=== PATIENT | female | born 1990 | race Caucasian/White ===

== ENCOUNTER 2019-04-30 09:06 | Emergency (ER) | payer OTHER, BC ==
[2019-04-30] MEDS ORDERED: HYDROmorphone 1 MG/ML Syringe IVPUSH ONE (10:20)
[2019-04-30] MEDS ORDERED: Iopamidol 612 MG/ML 50 ML SDV IVPUSH ONE (10:23)
[2019-04-30] MEDS ORDERED: Sodium Chloride 0.9% 10 ML Syringe FLUSH PRN (10:23)
[2019-04-30] MEDS ORDERED: Iopamidol 612 MG/ML 100 ML Bottle IVPUSH ONE (10:23)
[2019-04-30] MEDS ORDERED: Lactated Ringers 1,000 ML IV SCH (10:30)
[2019-04-30] MEDS: Sodium Chloride 0.9% 10 ML Syringe FLUSH PRN ×2 (10:41→10:54)
[2019-04-30] MEDS ORDERED: Ondansetron 4 MG/2 ML SDV IVPUSH ONE (10:50)
--- NOTE | 2019-04-30 12:18 | CT ---
CT chest Technique: Multiple axial sections were obtained from above the lung apices inferiorly through the lung bases. Intravenous contrast was utilized. Comparison: No prior chest imaging is available. Findings: Mediastinum and hilar regions are unremarkable. No pericardial thickening is seen. No axillary adenopathy is identified. Lungs are clear with no acute parenchymal change. No pleural effusions are seen. No pneumothorax is identified. Bone window settings were reviewed. No acute osseous finding is appreciated. Impression: 1. Nothing acute seen on CT study of the chest. Diagnostic code #1 CT abdomen and pelvis Technique: Multiple axial sections were obtained from above the dome of the diaphragm inferiorly through the pubic symphysis. Intravenous contrast was utilized. No oral contrast has been given. Delayed images were obtained through the bladder. Comparison: No prior abdominal imaging is available. Findings: Liver contains no focal abnormality. Spleen appears within normal limits. Adrenal glands show no nodule. Pancreas appears within normal limits. Gallbladder contains no calcified gallstones. Kidneys show symmetric contrast enhancement without abnormality being seen. Aorta shows no aneurysm. No retroperitoneal adenopathy or mesenteric abnormalities are seen. No pelvic mass or adenopathy is seen. No free fluid or inflammatory change is appreciated. Appendix is felt to be visualized and is normal in size. Bone window settings were reviewed which show no acute osseous finding. Delayed images show contrast within the distal ureters and within the bladder. Impression: 1. Nothing acute is appreciated on CT study of the abdomen and pelvis. Diagnostic code #1 This report was dictated in [place] Standard Time
--- NOTE | 2019-04-30 12:18 | CT ---
CT cervical spine Technique: Multiple axial sections were obtained from above C1 inferiorly to the mid T2 level. Reconstructed sagittal and coronal images were reviewed. Findings: Vertebral body heights and disc spaces are maintained. Vertebral bodies and posterior arches are intact. No fracture is appreciated. No bony central or bony neural foraminal stenosis is seen. Minimal degenerative change is noted within the lower apophyseal joints. Impression: 1. Minimal degenerative change as noted above. 2. No acute fracture or abnormal subluxation is seen. Diagnostic code #2 This report was dictated in [place] Standard Time
--- NOTE | 2019-04-30 12:18 | CT ---
Head CT Technique: Multiple axial sections through the brain were obtained. Intravenous contrast was not utilized. Comparison: No prior intracranial imaging is available. Findings: Ventricles along with basal cisterns and sulci over the convexities are within normal limits for the patient's age. No abnormal parenchymal densities are seen. No evidence of intracranial hemorrhage. No midline shift or mass-effect is seen. Bone window settings were reviewed. No acute calvarial abnormality is seen. Visualized paranasal sinuses and mastoid sinuses show nothing acute. Impression: 1. Nothing acute is appreciated on noncontrast head CT exam. Diagnostic code #1 This report was dictated in [place] Standard Time
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
== END 2019-04-30 13:30 | disposition home or self-care (01) ==
LOC: JD.ED 09:06
DX: S16.1XXA Strain of muscle, fascia and tendon at neck level, initial encounter (principal); S39.012A Strain of muscle, fascia and tendon of lower back, initial encounter; S30.1XXA Contusion of abdominal wall, initial encounter; R51 Headache; F41.9 Anxiety disorder, unspecified; Z79.899 Other long term (current) drug therapy; Z88.1 Allergy status to other antibiotic agents; V49.40XA Driver injured in collision with unspecified motor vehicles in traffic accident, initial encounter; Y92.410 Unspecified street and highway as the place of occurrence of the external cause
CPT/HCPCS: 36415; 70450; 71260; 72125; 74177; 80053; 81001; 83690; 84703; 85025; 96361; 96374; 96375; 99285; J1170; J2405; J7120; Q9967; 99284

== ENCOUNTER 2019-05-02 19:08 | Emergency (ER) | payer OTHER, BC ==
[2019-05-02] MEDS ORDERED: Ketorolac 60 MG/2 ML SDV IM ONE (19:53)
[2019-05-02] MEDS ORDERED: HYDROmorphone 1 MG/ML Syringe IM ONE (19:53)
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
== END 2019-05-02 20:35 | disposition home or self-care (01) ==
LOC: JD.ED 19:08
DX: S16.1XXD Strain of muscle, fascia and tendon at neck level, subsequent encounter (principal); S39.012D Strain of muscle, fascia and tendon of lower back, subsequent encounter; R51 Headache; F41.9 Anxiety disorder, unspecified; Z88.1 Allergy status to other antibiotic agents; Z79.899 Other long term (current) drug therapy; V89.2XXD Person injured in unspecified motor-vehicle accident, traffic, subsequent encounter
CPT/HCPCS: 96372; 99283; J1170; J1885

== ENCOUNTER 2019-05-11 19:58 | Emergency (ER) | payer BC, OTHER ==
[2019-05-11] MEDS ORDERED: Sodium Chloride 0.9% 10 ML Syringe FLUSH PRN (22:07)
[2019-05-11] MEDS ORDERED: Ketorolac 30 MG/ML SDV IVPUSH ONE (22:07)
[2019-05-11] MEDS ORDERED: diphenhydrAMINE 50 MG/ML SDV IVPUSH ONE (22:07)
[2019-05-11] MEDS ORDERED: Metoclopramide 10 MG/2 ML SDV IVPUSH ONE (22:07)
[2019-05-11] MEDS ORDERED: Sodium Chloride 0.9% 1,000 ML IV SCH (22:15)
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
[2019-05-11] MEDS ORDERED: Ketorolac 30 MG/ML SDV IM STA (22:47)
[2019-05-11] MEDS ORDERED: diphenhydrAMINE 50 MG/ML SDV IM STA (22:47)
[2019-05-11] MEDS ORDERED: Metoclopramide 10 MG/2 ML SDV IM STA (22:48)
== END 2019-05-11 23:50 | disposition home or self-care (01) ==
LOC: JD.ED 19:58
DX: R55 Syncope and collapse (principal); G44.209 Tension-type headache, unspecified, not intractable; Z88.8 Allergy status to other drugs, medicaments and biological substances; Z79.899 Other long term (current) drug therapy
CPT/HCPCS: 96372; 99283; J1200; J1885; J2765

== ENCOUNTER 2019-05-24 14:44 | Emergency (ER) | payer OTHER, BC ==
[2019-05-24] MEDS ORDERED: HYDROmorphone 1 MG/ML Syringe IM ONE (15:19)
[2019-05-24] MEDS ORDERED: Ketorolac 60 MG/2 ML SDV IM ONE (15:20)
[2019-05-24] MEDS ORDERED: Cyclobenzaprine 10 MG Tab PO ONE (15:20)
[2019-05-24] MEDS ORDERED: Ondansetron 4 MG Tab.DIS PO ONE (15:51)
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
== END 2019-05-24 16:06 | disposition home or self-care (01) ==
LOC: JD.ED 14:44
DX: M54.5 Low back pain (principal); F41.9 Anxiety disorder, unspecified; Z79.899 Other long term (current) drug therapy; Z88.8 Allergy status to other drugs, medicaments and biological substances
CPT/HCPCS: 96372; 99283; A9270; J1170; J1885

== ENCOUNTER 2019-08-23 19:57 | Emergency (ER) | payer BC, OTHER ==
--- NOTE | 2019-08-23 20:58 | EDM.PDOC ---
ED HPI GENERAL MEDICAL PROBLEM - General Chief Complaint: Lower Extremity Injury/Pain Stated Complaint: dropped cabinet on foot Time Seen by Provider: 08/23/19 20:06 Source of Information: Reports: Patient History Limitations: Reports: No Limitations - History of Present Illness INITIAL COMMENTS - FREE TEXT/NARRATIVE: Patient is a 29-year-old female who presents with pain to the distal portion of her left foot and toes. States she was carrying a cabinet and she dropped on her foot. She has been able to bear weight on the heel, however she puts weight on the anterior portion of her foot it is quite painful. She denies any history of previous fractures to the foot, however states she broke "1 of her toes as a young child ". Left Foot Pain Score (Numeric/FACES): 7 - Related Data Allergies Allergy/AdvReac Type Severity Reaction Status Date / Time cefdinir [From Omnicef] Allergy Abdominal Verified 08/23/19 20:11 Pain Home Meds: Home Meds Albuterol Sulfate [Albuterol Sulfate Hfa] 2 dispenser INH ASDIRECTED PRN [History] Cetirizine [ZyrTEC] 10 mg PO ASDIRECTED PRN 04/30/19 [History] Cyclobenzaprine [Flexeril] 10 mg PO TID PRN #20 tab 04/30/19 [Rx] Escitalopram [Lexapro] 30 mg PO DAILY 04/30/19 [History] Oxybutynin Chloride [Oxybutynin Chloride ER] 10 mg PO DAILY 04/30/19 [History] Sennosides/Docusate Sodium [Senna-Docusate Sodium Tablet] 1 tab PO ASDIRECTED [History] traZODone HCl [Trazodone HCl] 50 mg PO BEDTIME 04/30/19 [History] Hydrocodone/Acetaminophen [Hydrocodone-Acetamin 5-325 mg] 1 - 2 each PO Q6HR PRN #20 tablet 05/02/19 [Rx] Orphenadrine [Norflex] 100 mg PO BID PRN #20 tab 05/11/19 [Rx] Cyclobenzaprine [Flexeril] 10 mg PO TID PRN #20 tab 05/24/19 [Rx] Hydrocodone/Acetaminophen [Hydrocodone-Acetamin 5-325 mg] 1 - 2 each PO Q6HR PRN #20 tablet 05/24/19 [Rx] 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, Psychiatric History: Reports: Anxiety - Past Surgical History Female Surgical History: Reports: Hysterectomy, Other (See Below) Other Female Surgeries/Procedures: breast lumpectomy Musculoskeletal Surgical History: Reports: Arthroscopic Knee Oncologic Surgical History: Reports: Lumpectomy Social & Family History - Family History Family Medical History: Noncontributory - Tobacco Use Smoking Status *Q: Never Smoker - Caffeine Use Caffeine Use: Reports: Coffee - Recreational Drug Use Recreational Drug Use: No Review of Systems - Review of Systems Review Of Systems: Comprehensive ROS is negative, except as noted in HPI. ED EXAM, GENERAL - Physical Exam Exam: See Below Exam Limited By: No Limitations General Appearance: Alert, WD/WN, No Apparent Distress Respiratory/Chest: No Respiratory Distress, Lungs Clear, Normal Breath Sounds, No Accessory Muscle Use, Chest Non-Tender Cardiovascular: Normal Peripheral Pulses, Regular Rate, Rhythm, No Edema, No Gallop, No JVD, No Murmur, No Rub Extremities: Other (Mild edema and ecchymosis to the distal portion of the right foot. No obvious deformity or localized swelling. CMS is intact distal to the injury.) Neurological: Alert, Oriented, CN II-XII Intact, Normal Cognition, Normal Gait, Normal Reflexes, No Motor/Sensory Deficits Psychiatric: Normal Affect, Normal Mood Skin Exam: Warm, Dry, Intact, Normal Color, No Rash Course - Vital Signs Last Recorded V/S: Last Vital Signs Temp 98.3 F 08/23/19 20:08 Pulse 80 08/23/19 20:08 Resp 16 08/23/19 20:08 BP 135/79 08/23/19 20:08 Pulse Ox 100 08/23/19 20:08 - Orders/Labs/Meds Orders: Active Orders 24 hr Category Date Time Status Foot Comp Min 3V Lt [CR] Stat Exams 08/23/19 20:20 Taken - Re-Assessments/Exams Free Text/Narrative Re-Assessment/Exam: 08/23/19 20:56 X-rays of the foot were negative for any acute fractures. Discussed crutches versus walking boot. Patient requests a walking boot as she is in the process of moving. Discharge instructions as documented. Departure - Departure Time of Disposition: 20:57 Disposition: Home, Self-Care 01 Condition: Good Clinical Impression: Contusion of foot, left Qualifiers: Encounter type: initial encounter Qualified Code(s): S90.32XA - Contusion of left foot, initial encounter - Discharge Information Instructions: Contusion, [id number] Referrals: Bridgette Camarena, [employer] [Primary Care Provider] - Additional Instructions: You were seen in the emergency department today for left foot pain and swelling after dropping a cabinet on it. X-rays were done and were negative for any acute fractures. You have been provided a walking boot for comfort. Wear this as needed over the next few days until the pain and swelling improves. You may ice and elevate the extremity when at rest. Use [id number] Tylenol or ibuprofen as needed for pain. If you are still having significant pain to the extremity after about a week, I would recommend that you follow-up in the clinic for a recheck. Return to the ER as needed. Sepsis Event Note - Evaluation Sepsis Screening Result: No Definite Risk - Focused Exam Vital Signs: Vital Signs Temp Pulse Resp BP Pulse Ox 08/23/19 20:08 98.3 F 80 16 135/79 100 Date Exam was Performed: 08/23/19 Time Exam was Performed: 20:55 - My Orders Last 24 Hours: My Active Orders 08/23/19 20:20 Foot Comp Min 3V Lt [CR] Stat - Assessment/Plan Last 24 Hours: My Active Orders 08/23/19 20:20 Foot Comp Min 3V Lt [CR] Stat
--- NOTE | 2019-08-24 06:37 | CR ---
Left foot: 4 views of the left foot were obtained. Comparison: No prior foot exam is available. No fracture, dislocation or other bony abnormality is identified. Soft tissue swelling is noted dorsally. Impression: 1. Soft tissue swelling within the dorsal foot. 2. No acute bony abnormality is identified. Diagnostic code #2 This report was dictated in MDT
== END 2019-08-23 21:09 | disposition home or self-care (01) ==
LOC: JD.ED 19:57
DX: S90.32XA Contusion of left foot, initial encounter (principal); S90.31XA Contusion of right foot, initial encounter; F41.9 Anxiety disorder, unspecified; Z79.899 Other long term (current) drug therapy; Z88.8 Allergy status to other drugs, medicaments and biological substances; W20.8XXA Other cause of strike by thrown, projected or falling object, initial encounter
CPT/HCPCS: 73630-26-LT; 73630-LT; 99282; 99283-25

== ENCOUNTER 2019-09-19 06:55 | Day surgery (SDC) | payer BC, OTHER ==
[~2019-09-19 06:55] MED LIST: Lactated Ringers 1,000 ML IV SCH; Lidocaine 1%/Sod Bicarbonate in NS 8.4% 1 ML Syringe IDERM PRN; Sodium Chloride 0.9% 10 ML Syringe FLUSH PRN
[2019-09-19] MEDS ORDERED: Bupivacaine 0.5% 30 ML SDV ONE (07:15)
[2019-09-19] MEDS ORDERED: Propofol 200 MG/20 ML SDV ONE (07:18)
[2019-09-19] MEDS ORDERED: fentaNYL 250 MCG/5 ML SDV ONE (07:19)
[2019-09-19] MEDS ORDERED: Midazolam 1 MG/ML 2 ML SDV ONE (07:19)
[2019-09-19] MEDS ORDERED: Ondansetron 4 MG/2 ML SDV ONE (07:19)
[2019-09-19] MEDS ORDERED: Lidocaine 1% 4 ML ONE (07:19)
[2019-09-19] MEDS ORDERED: Succinylcholine/Sod PF 100 MG/5 ML SYRINGE IV ONE (07:25)
--- NOTE | 2019-09-19 07:34 | PCM.PREANE ---
Preanesthetic Assessment - Anesthesia/Transfusion/Family Hx Anesthesia History: Prior Anesthesia Without Reaction Transfusion History: No Prior Transfusion(s) Intubation History: Unknown - Review of Systems General: No Symptoms Pulmonary: No Symptoms Cardiovascular: No Symptoms Gastrointestinal: No Symptoms Neurological: No Symptoms Other: Reports: Depression, Anxiety - Physical Assessment NPO Status Date: 09/18/19 NPO Status Time: 22:00 Vital Signs: Last Vital Signs Temp 97.8 F 09/19/19 07:05 Pulse 76 09/19/19 07:05 Resp 16 09/19/19 07:05 BP 149/99 H 09/19/19 07:05 Pulse Ox 98 09/19/19 07:05 Height: 1.6 m Weight: 108.409 kg ASA Class: 2 Mental Status: Alert & Oriented x3 Airway Class: Mallampati = 1 Dentition: Reports: Normal Dentition Thyro-Mental Finger Breadths: 3 Mouth Opening Finger Breadths: 3 ROM/Head Extension: Full Lungs: Clear to Auscultation, Normal Respiratory Effort Cardiovascular: Regular Rate, Regular Rhythm - Lab Values: Laboratory Last Values COVID-19 PCR Not detected (NOT DETECT) 09/16/19 15:00 - Allergies Allergies/Adverse Reactions: Allergies Allergy/AdvReac Type Severity Reaction Status Date / Time cefdinir [From Omnicef] AdvReac Abdominal Verified 09/18/19 10:44 Pain - Acknowledgements Anesthesia Type Planned: General Anesthesia Pt an Appropriate Candidate for the Planned Anesthesia: Yes Alternatives and Risks of Anesthesia Discussed w Pt/Guardian: Yes Pt/Guardian Understands and Agrees with Anesthesia Plan: Yes PreAnesthesia Questionnaire Cardiovascular History: Reports: None Respiratory History: Reports: Other (See Below) Other Respiratory History: reactive airway disease- allergy induced Gastrointestinal History: Reports: None Genitourinary History: Reports: Other (See Below) Other Genitourinary History: overactive bladder, frequency 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 History: Reports: Polycystic Ovaries, Musculoskeletal History: Reports: Back Pain, Chronic Neurological History: Reports: Other (See Below) Other Neuro History: cervical pain, migraine, left extremily numbness tingling Psychiatric History: Reports: Anxiety, Depression Endocrine/Metabolic History: Reports: Hypothyroidism Hematologic History: Reports: None Immunologic History: Reports: None Oncologic (Cancer) History: Reports: None Dermatologic History: Reports: Other (See Below) Other Dermatologic History: lumpectomy - Past Surgical History Head Surgeries/Procedures: Reports: None HEENT Surgical History: Reports: Oral Surgery Cardiovascular Surgical History: Reports: None Respiratory Surgical History: Reports: None GI Surgical History: Reports: None Female Surgical History: Reports: Hysterectomy, Other (See Below) Other Female Surgeries/Procedures: breast lumpectomy Endocrine Surgical History: Reports: None Neurological Surgical History: Reports: None Musculoskeletal Surgical History: Reports: Arthroscopic Knee Oncologic Surgical History: Reports: Lumpectomy Dermatological Surgical History: Reports: None - SUBSTANCE USE Smoking Status *Q: Never Smoker Recreational Drug Use History: No - HOME MEDS Home Medications: Home Meds Albuterol Sulfate [Albuterol Sulfate Hfa] 1 puff INH Q4H PRN 04/30/19 [History] Oxybutynin Chloride [Oxybutynin Chloride ER] 10 mg PO DAILY 04/30/19 [History] Escitalopram Oxalate 10 mg PO DAILY 09/17/19 [History] Escitalopram Oxalate 20 mg PO DAILY 09/17/19 [History] Loratadine [Claritin] 10 mg PO DAILY 09/17/19 [History] busPIRone HCl [Buspirone HCl] 7.5 mg PO BID 09/17/19 [History] hydrOXYzine HCL [hydrOXYzine] 25 - 50 mg PO BEDTIME 09/17/19 [History] - CURRENT (IN HOUSE) MEDS Current Meds: Current Medications Lactated Ringer's (Ringers, Lactated) 1,000 mls @ 125 mls/hr IV ASDIRECTED IVAN Stop: 09/19/19 23:00 Last Admin: 09/19/19 07:10 Dose: 125 mls/hr Documented by: Lidocaine/Sodium Bicarbonate (Buffered Lidocaine 1% In Ns 8.4%) 0.25 ml IDERM ONETIME PRN PRN Reason: Prior to IV Start Stop: 09/19/19 23:00 Last Admin: 09/19/19 07:10 Dose: 0.25 ml Documented by: Sodium Chloride (Saline Flush) 10 ml FLUSH ASDIRECTED PRN PRN Reason: Keep Vein Open Stop: 09/19/19 18:00 Discontinued Medications Bupivacaine HCl (Marcaine 0.5%) Confirm Administered Dose 30 ml .ROUTE .STK-MED ONE Stop: 09/19/19 07:16 Fentanyl (Sublimaze) Confirm Administered Dose 250 mcg .ROUTE .STK-MED ONE Stop: 09/19/19 07:20 Lidocaine HCl (Xylocaine-Mpf 1%) Confirm Administered Dose 4 mls @ as directed .ROUTE .STK-MED ONE Stop: 09/19/19 07:20 Midazolam HCl (Versed 1 Mg/Ml) Confirm Administered Dose 4 mg .ROUTE .STK-MED ONE Stop: 09/19/19 07:20 Ondansetron HCl (Zofran) Confirm Administered Dose 8 mg .ROUTE .STK-MED ONE Stop: 09/19/19 07:20 Propofol (Diprivan 20 Ml) Confirm Administered Dose 200 mg .ROUTE .STK-MED ONE Stop: 09/19/19 07:19
[2019-09-19] MEDS ORDERED: fentaNYL 100 MCG/2 ML SDV IVPUSH PRN (07:48)
[2019-09-19] MEDS ORDERED: HYDROmorphone 0.5 MG/0.5 ML Syringe IVPUSH PRN (07:48)
[2019-09-19] MEDS ORDERED: Dexamethasone 4 MG/ML 5 ML MDV ONE (08:03)
[2019-09-19] MEDS ORDERED: Ketorolac 30 MG/ML SDV ONE (08:38)
--- NOTE | 2019-09-19 09:25 | PCM.POSTAN ---
POST ANESTHESIA ASSESSMENT - MENTAL STATUS Mental Status: Somnolent - VITAL SIGNS Vital Signs: Last Vital Signs Temp 97.5 F 09/19/19 09:14 Pulse 76 09/19/19 07:05 Resp 25 H 09/19/19 09:14 BP 128/64 09/19/19 09:14 Pulse Ox 94 L 09/19/19 09:14 - RESPIRATORY Respiratory Status: Respiratory Rate WNL, Airway Patent, O2 Saturation Stable, Supplemental Oxygen - CARDIOVASCULAR CV Status: Pulse Rate WNL, Blood Pressure Stable - GASTROINTESTINAL GI Status: No Symptoms - PAIN Pain Score: 0 - POST OP HYDRATION Hydration Status: Adequate & Stable
--- NOTE | 2019-09-19 09:33 | PCM.OPNOTE ---
- General Post-Op/Procedure Note Date of Surgery/Procedure: 09/19/19 Operative Procedure(s): Laparoscopy with bilateral salpingectomy, right ovarian cystectomy and lysis of adhesions Findings: Uterus was surgically absent consistent with previous transvaginal hysterectomy. Bilateral distal fallopian tubes present and normal in appearance. Left ovary grossly normal in appearance. Right ovary with an large cyst measuring approximately 3 cm in greatest diameter. This was removed during surgery. Extensive adhesions in the low pelvis of the omentum and intestines to the anterior abdominal wall in the pelvis. Adhesions from the ascending colon on the right side to the anterior abdominal wall and these were taken down. Grossly normal-appearing visualized portions of the intestines. Grossly normal- appearing liver edge and visualized portion of the gallbladder. Normal- appearing appendix. Pre Op Diagnosis: Female pelvic pain, PCOS and right ovarian cyst Post-Op Diagnosis: Same Anesthesia Technique: General ET Tube Primary Surgeon: Marco A Thomson Anesthesia Provider: Regulo Ordaz Back Tacker: Ryan Up Back Tacker: Pamela Pitts ([place] student) Reason Back Tacker Was Necessary: Patient safety and reduction of morbidity and mortality Role of Back Tacker: Use of laparoscopic instruments to complete the surgery Pathology: Bilateral fallopian tubes and right ovarian cyst wall with small portion of ovary present Fluid Replacement, Intraop: 1,000 Output, Urine Amount: 200 EBL in mLs: 10 Complications: None Condition: Good Free Text/Narrative:: The patient was seen in the preoperative holding area and risks, benefits, indications, and alternatives of the procedure were reviewed with the patient and she desired to proceed with a diagnostic laparoscopy, bilateral salpingectomy, possible lysis of adhesions, possible biopsies and possible ovarian cystectomy. Consents were reviewed. The patient was taken back to the OR and given general anesthesia with an endotracheal tube which was placed without difficulty. She was placed in dorsal supine position. A Wallace catheter was placed without difficulty prior to procedure. She was prepped and draped in normal sterile fashion. Attention was then turned to her umbilicus which was injected with 0.5% Marcaine and a 5 mm stab incision was made with a scalpel. A 5 mm trocar was then inserted under direct visualization through the incision without difficulty. Insufflation was started and opening pressure was noted to be 8 mmHg. The abdomen was inflated to 15 mmHg. A global view of the abdomen was taken and noted to have adhesions present in the lower pelvis from the omentum and the intestines to the anterior pelvic wall. There is also noted to be adhesions along the right side of the abdomen from the ascending colon to the anterior abdominal wall. Attention was then turned to the right lower quadrant in an area approximately senior living between the ASIS and umbilicus was identified to be free of any blood vessels and the skin was injected with local anesthetic. A skin incision was made using a scalpel. A 5 mm trocar was then inserted under direct visualization with laparoscope. Attention was then turned to the left lower quadrant and again an area that was free of any blood vessels was noted approximately senior living between the ASIS and the umbilicus and the skin was injected with local anesthetic. A 5 mm stab incision was made with a scalpel. A 5 mm trocar was inserted under direct visualization. The intestines, visualized portions of the liver and gallbladder and upper abdomen were overall normal appearance. Attention was then turned to the pelvis which was noted to have the adhesions and these were taken down using an Enseal vessel sealing device. We were then able to visualize the right ovary and distal portion of the fallopian tube. The fallopian tube was grasped with a grasper and transected away from the underlying ovarian tissue using the Enseal vessel sealing device. The ovary was noted to be overall normal in appearance with one larger ovarian cyst measuring approximately 3 cm. Attention was then turned to the left side of the pelvis which again was noted to have adhesions present and these were taken down using the Enseal vessel sealing device. The left ovary and fallopian tube were visualized and were noted to be grossly normal in appearance. There was no significant ovarian cysts noted in the left ovary. The fallopian tube on the left side was grasped with a laparoscopic grasper and was dissected away from the underlying ovarian tissue using the Enseal vessel sealing device. The bilateral fallopian tube segments were sent for pathology. Inspection of the surgical bed from the excision of the fallopian tubes was noted to be hemostatic at this time. Attention was then turned to the right ovary and the previously visualized ovarian cyst was excised using the Enseal vessel sealing device. During excision of the ovarian cyst the cyst was ruptured with a small amount of clear fluid. The entirety of the cyst wall was excised using the Enseal vessel sealing device. The ovary was hemostatic after excision of the ovarian cyst wall tissue. Attention was then turned to the right side of the abdomen where the adhesions from the ascending colon to the anterior abdominal wall were again visualized. These were taken down using blunt dissection as well as with transection using the Enseal vessel sealing device. After the adhesions were removed there was only physiologic adhesions present. The abdomen was then further explored and felt to be overall normal and the case was completed at this time. The gas was then evacuated from the peritoneum and trocars removed. These were closed using 4-0 Monocryl suture and Dermabond. The case was completed at this time and all instruments were removed. The Wallace catheter was discontinued at this time. The patient was awoken from general anesthesia and taken to the PACU for recovery in stable condition. She will be discharged to home once she is able to meet all postoperative milestones including tolerating small amount of oral intake and liquids, ambulate without difficulty, her pain controlled with oral medications and able to void without difficulty. She will follow-up in the clinic in 2 weeks or earlier as needed. Sponge, lap, needle, and instrument counts were correct x 2. Review of images from case IMG 002: Grossly normal-appearing left ovary with small portion of the fallopian tube present IMG 003: Adhesions from the anterior abdominal wall to the ascending colon on the right side of the abdomen with right lower quadrant trocar visualized IMG 004: Grossly normal-appearing liver edge, gallbladder and visualized portions of the intestines IMG 005: Grossly normal-appearing appendix IMG 006: Right ovary following ovarian cystectomy and salpingectomy. Hemostasis noted IMG 007: Left ovary status post salpingectomy with hemostasis noted IMG 008: Deep pelvis to be free of adhesions that were removed during the case IMG 009: Right lower quadrant after lysis of adhesions with hemostasis noted IMG 010: Liver edge normal in appearance with normal-appearing intestines IMG 011: Right lower quadrant port site following removal of the trocar. Noted to be hemostatic
--- NOTE | 2019-09-19 10:41 | PCM48HPAN ---
Post Anesthesia Note - EVALUATION WITHIN 48HRS OF ANESTHETIC Vital Signs in Normal Range: Yes Patient Participated in Evaluation: Yes Respiratory Function Stable: Yes Airway Patent: Yes Cardiovascular Function Stable: Yes Hydration Status Stable: Yes Pain Control Satisfactory: Yes Nausea and Vomiting Control Satisfactory: Yes Mental Status Recovered: Yes Vital Signs: Last Vital Signs Temp 97.5 F 09/19/19 09:14 Pulse 76 09/19/19 07:05 Resp 19 09/19/19 10:00 BP 132/75 09/19/19 10:00 Pulse Ox 96 09/19/19 10:00 - COMMENTS/OBSERVATIONS Free Text/Narrative:: No anesthesia complications noted. Patient is being transferred to extended floor recovery
== END 2019-09-19 11:30 | disposition home or self-care (01) ==
LOC: JD.SDS 06:55 → JD.OB 10:26 → JD.SDS 11:30
PROVIDERS: ATTEND Obstetrics & Gynecology
DX: N83.11 Corpus luteum cyst of right ovary (principal); N83.01 Follicular cyst of right ovary; F41.9 Anxiety disorder, unspecified; Z11.59 Encounter for screening for other viral diseases; Z88.8 Allergy status to other drugs, medicaments and biological substances; Z79.899 Other long term (current) drug therapy; Z87.42 Personal history of other diseases of the female genital tract
CPT/HCPCS: 58661; 58662; 87635; J0330; J1100; J1885; J2001; J2250; J2405; J2704; J3010; J3490; J7120; 00840; U0002

== ENCOUNTER 2019-10-12 21:18 | Emergency (ER) | payer BC | END 2019-10-12 22:30 | LOC: JD.ED 21:18 | DX: Z53.21 Procedure and treatment not carried out due to patient leaving prior to being seen by health care provider (principal) ==

== ENCOUNTER 2019-10-13 18:10 | Emergency (ER) | payer BC, OTHER ==
[2019-10-13] MEDS ORDERED: Ketorolac 30 MG/ML SDV IVPUSH ONE (19:03)
[2019-10-13] MEDS ORDERED: diphenhydrAMINE 50 MG/ML SDV IVPUSH ONE (19:03)
[2019-10-13] MEDS ORDERED: Metoclopramide 10 MG/2 ML SDV IVPUSH ONE (19:03)
[2019-10-13] MEDS ORDERED: Sodium Chloride 0.9% 10 ML Syringe FLUSH PRN (19:03)
[2019-10-13] MEDS ORDERED: Sodium Chloride 0.9% 1,000 ML IV ONE (19:03)
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
== END 2019-10-13 20:12 | disposition home or self-care (01) ==
LOC: JD.ED 18:10
DX: G44.209 Tension-type headache, unspecified, not intractable (principal); F41.9 Anxiety disorder, unspecified; F32.9 Major depressive disorder, single episode, unspecified; J45.909 Unspecified asthma, uncomplicated; Z79.899 Other long term (current) drug therapy; Z88.1 Allergy status to other antibiotic agents
CPT/HCPCS: 96374; 96375; 99283; J1200; J1885; J2765; J7030

== ENCOUNTER 2021-04-07 19:47 | Emergency (ER) | payer BC ==
[2021-04-07] MEDS ORDERED: Metoclopramide 10 MG/2 ML SDV IVPUSH ONE (20:11)
[2021-04-07] MEDS ORDERED: Sodium Chloride 0.9% 10 ML Syringe FLUSH PRN (20:11)
[2021-04-07] MEDS ORDERED: HYDROmorphone 1 MG/ML Syringe IVPUSH ONE (20:12)
[2021-04-07] MEDS ORDERED: Sodium Chloride 0.9% 1,000 ML IV SCH (20:15)
[2021-04-07] MEDS ORDERED: Sodium Chloride 0.9% 1,000 ML IV ONE (21:23)
== END 2021-04-07 21:49 | disposition home or self-care (01) ==
LOC: JD.ED 19:47
DX: A08.4 Viral intestinal infection, unspecified (principal); J45.909 Unspecified asthma, uncomplicated; Z88.1 Allergy status to other antibiotic agents; Z79.899 Other long term (current) drug therapy
CPT/HCPCS: 36415; 80053; 81001; 83690; 85025; 86140; 96374; 99284; J2765; J7030